=== PATIENT | male | born 1960 | race Caucasian/White ===

== ENCOUNTER 2022-08-26 16:11 | Emergency (ER) | payer OTHER ==
[~2022-08-26] VITALS: Ht 172.7 cm; Wt 84.4 kg
[2022-08-26 16:26] VITALS: BP 150/70
--- NOTE | 2022-08-26 16:47 | NUR ---
bib for bump and pain to testicle x 2 days. no discharge, n,v, fever. aao x4. resp even and nonlabored. ambulatory
[2022-08-26 17:17] LABS: APPEARANCE,URINE CLEAR (CLEAR); BILIRUBIN,URINE NEGATIVE (NEGATIVE); BLOOD, URINE 3+ (NEGATIVE); COLOR,URINE YELLOW (YELLOW); LEUKOCYTE ESTERASE ,URINE NEGATIVE (NEGATIVE); NITRITE, URINE NEGATIVE (NEGATIVE); UGLUCOSE NEGATIVE (NEGATIVE)
[2022-08-26] MEDS ORDERED: LIDOCAINE 1% 500 MG/ 50 ML VIAL INJ ONE (17:55)
[2022-08-26] MEDS ORDERED: LIDOCAINE MPF 1% 5 ML ONE (17:58)
[2022-08-26] MEDS ORDERED: IBUP-2213 PO (18:19)
[2022-08-26] MEDS ORDERED: CEPH-588 PO (18:19)
[2022-08-26 18:46] VITALS: BP 122/70
== END 2022-08-26 18:46 | disposition home or self-care (01) ==
LOC: MED 16:11
DX: L02.214 Cutaneous abscess of groin (principal); Z79.899 Other long term (current) drug therapy
CPT/HCPCS: 10060; 76870; 81001; 99284; J2001; Q0092

== ENCOUNTER 2022-09-06 11:10 | Emergency (ER) | payer OTHER ==
[~2022-09-06] VITALS: Ht 167.6 cm; Wt 91.6 kg
[~2022-09-06 11:10] MED LIST: CEPH-588 PO; IBUP-2213 PO
[2022-09-06 12:11] VITALS: BP 137/74
--- NOTE | 2022-09-06 12:13 | NUR ---
URINE COLLECTED IN TRIAGE
--- NOTE | 2022-09-06 12:30 | NUR ---
C/O RL GROIN PAIN , NO FEVE R, CHILLS, NO N/V/D/C NO DYSURIA
[2022-09-06] MEDS ORDERED: CLIN1GEL2 TP (13:20)
[2022-09-06] MEDS ORDERED: SULF-58 PO (13:20)
[2022-09-06 16:24] LABS: APPEARANCE,URINE CLEAR (CLEAR); BILIRUBIN,URINE NEGATIVE (NEGATIVE); BLOOD, URINE TRACE-I (NEGATIVE); COLOR,URINE YELLOW (YELLOW); LEUKOCYTE ESTERASE ,URINE NEGATIVE (NEGATIVE); NITRITE, URINE NEGATIVE (NEGATIVE); PH,URINE 5.5 (5.0-9.0); UGLUCOSE NEGATIVE (NEGATIVE)
[2022-09-06 16:31] LABS: RBC,URINE 0-5 /HPF (0-5)
--- NOTE | 2022-09-06 17:17 | NUR ---
Patient discharged with v/s stable. Written and verbal after care instructions given and explained. Patient alert, oriented and verbalized understanding of instructions. Ambulatory with to home. All questions addressed prior to discharge. ID band removed. Patient advised to follow up with PMD. Rx of CLINDA, BACTRIM given. Patient educated on indication of medication including possible reaction and side effects. Opportunity to ask questions provided and answered.
== END 2022-09-06 17:17 | disposition home or self-care (01) ==
LOC: MED 11:10
DX: L02.214 Cutaneous abscess of groin (principal); Z79.899 Other long term (current) drug therapy
CPT/HCPCS: 81001; 87086; 87491; 99283